=== PATIENT | female | born 1965 | race Caucasian/White ===

== ENCOUNTER 2017-02-02 14:17 | Inpatient (IN) | payer MEDICAID ==
[~2017-02-02] VITALS: Ht 154.9 cm; Wt 76.7 kg
[~2017-02-02 14:17] MED LIST: FAMO20TA7 PO; OXYC5TAB3 PO; PRED10TA PO
[2017-02-02] MEDS ORDERED: SODIUM CHLORIDE 0.9% 1,000 ML IV ONE (14:24)
[2017-02-02] MEDS ORDERED: SODIUM CHLORIDE FLUSH 10ML SYR IVF ONE (14:30)
[2017-02-02] MEDS ORDERED: ACETAMINOPHEN 325 MG TABLET PO ONE (14:30)
[2017-02-02] MEDS ORDERED: ACETAMINOPHEN 325 MG TABLET ONE (14:44)
[2017-02-02 14:53] LABS: HEMATOCRIT 45.2 % (34.6-47.8); HEMOGLOBIN 14.7 g/dL (11.7-16.4); WHITE BLOOD COUNT 4.3 x10^3/uL (3.4-10)
[2017-02-02 14:59] LABS: RAPID INFLUENZA A Negative (Negative); RAPID INFLUENZA B POSITIVE (Negative)
[2017-02-02 15:09] LABS: BLOOD UREA NITROGEN 13 mg/dL (7-18)
[2017-02-02 15:11] LABS: ASPARTATE AMINO TRANSFERASE 22 U/L (15-37)
[2017-02-02 15:40] LABS: PATH.CAST-FLAG NOT PRESENT; SPERM-FLAG NOT PRESENT; SRC-FLAG NOT PRESENT; XTAL-FLAG NOT PRESENT; YLC-FLAG NOT PRESENT
[2017-02-02] MEDS ORDERED: KETOROLAC 30 MG/1 ML ONE (16:29)
[2017-02-02] MEDS ORDERED: KETOROLAC 30 MG/1 ML IVPush ONE (16:30)
[2017-02-02] MEDS ORDERED: CEFTRIAXONE PMX 1GM/50ML 50 ML IVPB ONE (17:00)
[2017-02-02] MEDS ORDERED: SODIUM CHLORIDE FLUSH 10ML SYR IVF PRN (17:30)
[2017-02-02] MEDS ORDERED: CEFTRIAXONE PMX 1GM/50ML 50 ML ONE (17:58)
[2017-02-02] MEDS ORDERED: TRAZODONE 50MG TABLET PO PRN (18:00)
[2017-02-02] MEDS: ENOXAPARIN 40 MG/0.4 ML SQ SCH (18:00)
[2017-02-02] MEDS ORDERED: ONDANSETRON ODT 4 MG PO PRN (18:00)
[2017-02-02] MEDS: SODIUM CHLORIDE 0.9% 1,000 ML IV SCH ×2 (18:13→22:04)
[2017-02-02 19:55] VITALS: BP 120/74
[2017-02-02] MEDS: ACETAMINOPHEN 325 MG TABLET PO PRN (22:40)
[2017-02-03 01:13] VITALS: BP 136/63
[2017-02-03 05:00] LABS: HEMATOCRIT 38.1 % (34.6-47.8); HEMOGLOBIN 12.8 g/dL (11.7-16.4); WHITE BLOOD COUNT 2.5 x10^3/uL (3.4-10)
[2017-02-03 05:13] LABS: BLOOD UREA NITROGEN 12 mg/dL (7-18)
[2017-02-03] MEDS: SODIUM CHLORIDE 0.9% 1,000 ML IV SCH ×3 (05:14→20:46)
[2017-02-03] MEDS: CEFTRIAXONE PMX 1GM/50ML 50 ML IV SCH ×2 (05:14→18:14)
[2017-02-03 05:38] LABS: DIFF TOTAL CELLS COUNTED 100 CELL DIFF
[2017-02-03 05:41] LABS: VERIFY COUNTS? YES
[2017-02-03] MEDS: ACETAMINOPHEN 325 MG TABLET PO PRN ×3 (08:01→20:14)
[2017-02-03 11:34] VITALS: BP 132/92
[2017-02-03] MEDS: KETOROLAC 30 MG/1 ML IVPush PRN (14:09)
[2017-02-03 15:00] VITALS: BP 128/78
[2017-02-03] MEDS: ENOXAPARIN 40 MG/0.4 ML SQ SCH (18:00)
[2017-02-03 19:38] VITALS: BP 162/86
[2017-02-04 01:06] VITALS: BP 159/90
[2017-02-04] MEDS: KETOROLAC 30 MG/1 ML IVPush PRN ×2 (01:16→13:23)
[2017-02-04] MEDS: CEFTRIAXONE PMX 1GM/50ML 50 ML IV SCH ×2 (06:32→17:48)
[2017-02-04] MEDS: ACETAMINOPHEN 325 MG TABLET PO PRN ×2 (07:59→20:59)
[2017-02-04 08:00] VITALS: BP 143/87
[2017-02-04] MEDS ORDERED: METHOCARBAMOL 500 MG TABLET PO PRN (11:00)
[2017-02-04 11:33] LABS: HEMATOCRIT 39.5 % (34.6-47.8); HEMOGLOBIN 13.1 g/dL (11.7-16.4); WHITE BLOOD COUNT 3.3 x10^3/uL (3.4-10)
[2017-02-04 11:44] LABS: BLOOD UREA NITROGEN 6 mg/dL (7-18)
[2017-02-04 11:48] LABS: DIFF TOTAL CELLS COUNTED 100 CELL DIFF
[2017-02-04 11:51] LABS: VERIFY COUNTS? YES
[2017-02-04 13:15] VITALS: BP 160/88
[2017-02-04] MEDS: SODIUM CHLORIDE 0.9% 1,000 ML IV SCH (13:24)
[2017-02-04] MEDS ORDERED: SODIUM CHLORIDE 0.9% 1,000 ML IV SCH (17:40)
[2017-02-04] MEDS: ENOXAPARIN 40 MG/0.4 ML SQ SCH (17:48)
[2017-02-04 19:26] VITALS: BP 146/86
[2017-02-05 01:27] VITALS: BP 139/87
[2017-02-05] MEDS: SODIUM CHLORIDE 0.9% 1,000 ML IV SCH (01:32)
[2017-02-05] MEDS: CEFTRIAXONE PMX 1GM/50ML 50 ML IV SCH (06:02)
[2017-02-05 06:32] LABS: HEMATOCRIT 40.1 % (34.6-47.8); HEMOGLOBIN 13.6 g/dL (11.7-16.4); WHITE BLOOD COUNT 3.4 x10^3/uL (3.4-10)
[2017-02-05] MEDS: KETOROLAC 30 MG/1 ML IVPush PRN (06:43)
[2017-02-05 06:47] LABS: BLOOD UREA NITROGEN 7 mg/dL (7-18)
[2017-02-05 07:46] VITALS: BP 138/77
[2017-02-05] MEDS ORDERED: CEFD300C37 PO (12:59)
[2017-02-05] MEDS ORDERED: ACET325T14 PO (12:59)
[2017-02-05] MEDS ORDERED: METH500T7 PO (12:59)
== END 2017-02-05 14:50 | disposition home or self-care (01) | DRG 74 ==
LOC: ED 16:30 → EDIP 17:06 → 3NE 19:35
PROVIDERS: ADMIT Internal Medicine; ATTEND Internal Medicine
PROC: 0T9B70Z Drainage of Bladder with Drainage Device, Via Natural or Artificial Opening (ICD-10-PCS; principal; 2017-02-02)
DX: G90.9 Disorder of the autonomic nervous system, unspecified (principal); E44.1 Mild protein-calorie malnutrition; N30.90 Cystitis, unspecified without hematuria; B96.20 Unspecified Escherichia coli [E. coli] as the cause of diseases classified elsewhere; G35 Multiple sclerosis; J10.1 Influenza due to other identified influenza virus with other respiratory manifestations; Z87.828 Personal history of other (healed) physical injury and trauma; Z88.8 Allergy status to other drugs, medicaments and biological substances; Z68.31 Body mass index [BMI] 31.0-31.9, adult
CPT/HCPCS: 36415; 70450; 71010; 80048; 80053; 81001; 83605; 84145; 84443; 85025; 85610; 85730; 87040; 87077; 87086; 87186; 87400; 93005; 96361; 96365; 96375; J0696; J1885; J7030

== ENCOUNTER → 2017-08-18 | Outpatient (CLI) | payer MEDICAID ==
[~2017-08-18] MED LIST changes: +ACET325T14 PO; +CEFD300C37 PO; +FENTANYL PF 100 MCG/2ML ONE; +FLUMAZENIL 0.1 MG/1 ML, 5ML ONE; +GADOBUTROL 7.5 MMOL/7.5 ML PFS ONE; +METH500T7 PO; +MIDAZOLAM 1 MG/ML, 5ML ONE; +NALOXONE 1 MG/ML, 2ML ONE; +ONDANSETRON 2MG/ML, 2ML ONE
== END | disposition home or self-care (01) ==
LOC: RAD 08:15
PROVIDERS: ATTEND Psychiatry & Neurology Neurology
DX: G35 Multiple sclerosis (principal); G31.9 Degenerative disease of nervous system, unspecified; R90.82 White matter disease, unspecified
CPT/HCPCS: 70553; 99156; 99157; A9585; J2250; J3010; J2405; J2310